=== PATIENT | female | born 1940 | race Caucasian/White ===

== ENCOUNTER 2019-04-06 08:03 | Day surgery (SDC) | payer MEDICARE, OTHER ==
[~2019-04-06] VITALS: Ht 165.1 cm; Wt 65.8 kg
[2019-04-06] MEDS ORDERED: CEPH250T PO (08:51)
[2019-04-06] MEDS ORDERED: PRED5TAB PO (08:51)
[2019-04-06] MEDS ORDERED: GABA-532 PO (08:51)
[2019-04-06] MEDS ORDERED: PANT-47 PO (08:51)
[2019-04-06] MEDS ORDERED: SULF1TAB49 PO (08:51)
[2019-04-06] MEDS ORDERED: ALLO300T2 PO (08:51)
[2019-04-06] MEDS ORDERED: CYAN-51 PO (08:52)
[2019-04-06 08:55] VITALS: BP 156/67
[2019-04-06] MEDS ORDERED: midazolam 2 mg/2 ml injection IV PRN (09:40)
[2019-04-06] MEDS ORDERED: LIDOcaine 1%/PF 5ML 10 MG/ML VIAL SQ ONE (09:40)
[2019-04-06] MEDS ORDERED: fentaNYL/PF 50MCG/1 ML 2ML syringe IV PRN (09:40)
[2019-04-06] MEDS ORDERED: LIDOcaine 1% 30ml preserv. free vial IJ STA (09:44)
[2019-04-06] MEDS ORDERED: LIDOcaine 1%/PF 5ML 10 MG/ML VIAL ONE (10:05)
[2019-04-06 10:30] VITALS: BP 167/82
--- NOTE | 2019-04-06 10:39 | NUR ---
Patient taken to Angio suite for port removal. Vitals monitored during procedure. Timeout performed. MD administered 8mls of lidocaine to right chest, and port removed without complications. Sutures applied. Steri strips applied. Patient tolerated procedure well, no change from baseline vitals. Patient returned to short stay unit with all belongings.
== END 2019-04-06 10:35 | disposition home or self-care (01) ==
LOC: SSTAY O 08:03
PROVIDERS: ATTEND Radiology Diagnostic Radiology
DX: T82.898A Other specified complication of vascular prosthetic devices, implants and grafts, initial encounter (principal); Z85.43 Personal history of malignant neoplasm of ovary; Z79.899 Other long term (current) drug therapy; Y83.8 Other surgical procedures as the cause of abnormal reaction of the patient, or of later complication, without mention of misadventure at the time of the procedure; Y92.89 Other specified places as the place of occurrence of the external cause
CPT/HCPCS: 36590